=== PATIENT | male | born 1955 | race Caucasian/White ===

== ENCOUNTER 2021-08-21 08:06 | Emergency (ER) | payer MEDICARE ==
[~2021-08-21] VITALS: Ht 172 cm; Wt 77.1 kg
[2021-08-21] MEDS ORDERED: LIDOCAINE UROJET 2% GEL 10 ML PKG TOP ONE (08:15)
[2021-08-21] MEDS ORDERED: LIDOCAINE UROJET 2% GEL 10 ML PKG ONE (08:17)
[2021-08-21 08:41] LABS: BILIRUBIN,URINE NEGATIVE (NEGATIVE); CLARITY,URINE CLOUDY; COLOR,URINE YELLOW; GLUCOSE, URINE (UA) 2+ (NEGATIVE); KETONES,URINE NEGATIVE (NEGATIVE); LEUKOCYTE ESTERASE ,URINE NEGATIVE (NEGATIVE); NITRITE,URINE NEGATIVE (NEGATIVE); PROTEIN,URINE NEGATIVE (NEGATIVE)
[2021-08-21] MEDS ORDERED: TMSL.4C PO (08:46)
--- NOTE | 2021-08-21 08:49 | ED GU-Male ---
General Chief Complaint: - Reproductive Stated Complaint: UNABLE TO URINATE Nursing Triage Note: pt presents to ed via pov from home with complaitns of inabilty to urinate since last night. pt reprots he feels very distended and full and is having groin pain. Source: patient Exam Limitations: no limitations History of Present Illness Date Seen by Provider: Aug 21, 2021 Time Seen by Provider: 08:11 Initial Comments This 65-year-old gentleman presents to the emergency room with inability to urinate. He woke in the night multiple times attempting to urinate and with urge to urinate but was unable to. He has had some urinary hesitancy and weak stream in the past. He has taken supplements but has not taken any prescription medications for prostate disease. He is in distress from lower abdominal pain. Allergies and Home Medications Allergies Coded Allergies: Penicillins (Verified Allergy, Unknown, 08/21/21) Patient Home Medication List Home Medication List Reviewed: Yes Tamsulosin HCl (Flomax) 0.4 Mg Cap, 0.4 MG PO DAILY Prescribed by: ZEB LAUREANO on 08/21/21 0846 Review of Systems Review of Systems Constitutional: no symptoms reported EENTM: no symptoms reported Respiratory: no symptoms reported Cardiovascular: no symptoms reported Gastrointestinal: nausea Genitourinary: see HPI Musculoskeletal: no symptoms reported Skin: no symptoms reported Psychiatric/Neurological: No Symptoms Reported Endocrine: No Symptoms Reported Hematologic/Lymphatic: No Symptoms Reported Past Dkyydzy-Kionyi-Pjzody Hx Patient Social History Tobacco Use?: No Substance use?: Yes Substance type: Marijuana Alcohol Use?: Yes Alcohol Frequency: Rarely Pt feels they are or have been: No Immunizations Up To Date First/Initial COVID19 Vaccinat: yes Second COVID19 Vaccination Jamel: yes 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 oz. kg; 26.00 BMI Method: General Appearance: WD/WN, moderate distress HEENT: normal ENT inspection Neck: normal inspection Cardiovascular: regular rate, rhythm, no edema, no murmur Respiratory: lungs clear, normal breath sounds, no respiratory distress Gastrointestinal: distended, tenderness Male: normal genitalia Extremities: normal inspection, no pedal edema Neurologic/Psychiatric: no motor/sensory deficits, alert, normal mood/affect, oriented x 3 Skin: normal color, warm/dry Progress/Results/Core Measures Suspected Sepsis SIRS Temperature: Pulse: 81 Respiratory Rate: 18 Blood Pressure 193 /97 Mean: 129 Results/Orders Lab Results Laboratory Tests Test 08/21/21 08:27 Range/Units Urine Color YELLOW Urine Clarity CLOUDY Urine pH 7.0 5-9 Urine Specific [place] 1.015 L 1.016-1.022 Urine Protein NEGATIVE NEGATIVE Urine Glucose (UA) 2+ H NEGATIVE Urine Ketones NEGATIVE NEGATIVE Urine Nitrite NEGATIVE NEGATIVE Urine Bilirubin NEGATIVE NEGATIVE Urine Urobilinogen 0.2 < = 1.0 MG/DL Urine Leukocyte Esterase NEGATIVE NEGATIVE Urine RBC (Auto) 3+ H NEGATIVE Urine RBC 50-100 H /HPF Urine WBC RARE /HPF Urine Crystals NONE /LPF Urine Bacteria NEGATIVE /HPF Urine Casts NONE /LPF Urine Mucus NEGATIVE /LPF Urine Culture Indicated NO My Orders Orders - ZEB QUIROZ MD Ua Culture If Indicated (08/21/21 08:11) Lidocaine 2% (Urojet) (Xylocaine Urojet) (08/21/21 08:15) Lidocaine 2% (Urojet) (Xylocaine Urojet) (08/21/21 08:17) Medications Given in ED Vital Signs/I&O 08/21/21 08/21/21 08:29 09:14 Temp 36.5 Pulse 81 85 Resp 18 18 B/P (MAP) 193/97 (129) 174/87 Pulse Ox 98 98 Capillary Refill : Less Than 3 Seconds Blood Pressure Mean: 129 Progress Note : Progress Note Urojet was used for anesthetic and coud catheter was successfully placed yielding 700 mL of urine. Patient was prescribed Flomax and advised to see a u rologist as soon as possible. Leg bag was dispensed and Lopez catheter remained in place. Departure Impression Primary Impression: Urinary retention Disposition: 01 HOME, SELF-CARE Condition: Improved Departure-Patient Inst. Referrals: LUIS ANGEL CPOE DO (PCP) Primary Care Physician EDNA MARTINEZ MD Patient Instructions: Lopez Catheter, Urinary Retention Add. Discharge Instructions: Take Flomax daily as prescribed. Follow-up with Dr. Martinez or the urologist of your choice as soon as possible. See contact information below. Alternatively, you may follow-up with your primary care provider and seek a referral to a urologist. It is recommended that you leave the catheter in for about a week and have it removed in the clinical care setting at a follow-up appointment. If you are unable to get into a follow-up appointment within the next 7 to 10 days, return to the ER to have your catheter removed. Drink plenty of clear liquids. Empty your catheter bag frequently and try to keep the bag below the level of your bladder as much as possible. Call with questions or concerns. Return to the ER if you have any further problems or concerns. All discharge instructions reviewed with patient and/or family. Voiced un derstanding. Scripts Tamsulosin HCl (Flomax) 0.4 Mg Cap 0.4 MG PO DAILY, #30 CAP Prov: ZEB QUIROZ MD 08/21/21 ZEB QUIROZ MD Aug 21, 2021 08:49
[2021-08-21 08:53] LABS: BACTERIA,URINE NEGATIVE /HPF; RBC,URINE 50-100 /HPF; WBC,URINE RARE /HPF
[2021-08-21 09:14] VITALS: BP 174/87
== END 2021-08-21 09:11 | disposition home or self-care (01) ==
LOC: EDUNIT# 08:06 → ER 08:07
DX: R33.9 Retention of urine, unspecified (principal)
CPT/HCPCS: 51702; 81000

== ENCOUNTER 2022-02-01 07:46 | Emergency (ER) | payer MEDICARE ==
[~2022-02-01] VITALS: Ht 170.1 cm; Wt 72.5 kg
[~2022-02-01 07:46] MED LIST: TMSL.4C PO
[2022-02-01] MEDS ORDERED: LIDOCAINE UROJET 2% GEL 10 ML PKG TOP ONE (08:15)
--- NOTE | 2022-02-01 08:24 | ED GU-Female ---
General Chief Complaint: - Reproductive Stated Complaint: UNABLE TO URINATE Nursing Triage Note: PT AMB TO RM 6. PT STATED THAT HE STARTED HAVING URINARY PAIN THIS MORNING AND WAS NOT ABLE URINATE. Source: patient Exam Limitations: no limitations History of Present Illness Date Seen by Provider: Feb 01, 2022 Time Seen by Provider: 07:57 Initial Comments Here with report of acute onset of urinary retention. States that he has had this previously and had catheter placed in August. In-N-Out catheter done several weeks ago while he was on vacation and was doing better. He is on Flomax. States that he did take that as prescribed and was able to urinate overnight but woke up this morning and has not been able to urinate since. He has urology appointment tomorrow. He is requesting only in and out catheter and he states that that usually works well. Denies fever or chills. Denies blood in his urine. Does have a known history of prostate problems. Timing/Duration: this morning Severity/Quality: moderate Location: suprapubic Radiation: suprapubic Activities at Onset: none Modifying Factors: Improves With Urinating Associated Symptoms: No dysuria, No fever/chills, No lower back pain, No nausea/vomiting Allergies and Home Medications Allergies Coded Allergies: Penicillins (Verified Allergy, Unknown, 08/21/21) Patient Home Medication List Home Medication List Reviewed: Yes Tamsulosin HCl (Flomax) 0.4 Mg Cap, 0.4 MG PO DAILY Prescribed by: ZEB LAUREANO on 08/21/21 0846 Review of Systems Review of Systems Constitutional: see HPI; No chills, No fever Respiratory: no symptoms reported Cardiovascular: no symptoms reported Genitourinary: denies dysuria, denies flank pain Musculoskeletal: No back pain, No neck pain Past Vndsynq-Ewjkol-Efxjtn Hx Patient Social History Tobacco Use?: No Alcohol Use?: Yes Alcohol Frequency: Once in a while Immunizations Up To Date First/Initial COVID19 Vaccinat: yes Second COVID19 Vaccination Jamel: yes Past Medical History Surgery/Hospitalization HX: pmh: prostate issues Surgeries: No Respiratory: No Cardiac: No Neurological: No Genitourinary: Yes Prostate Problems Gastrointestinal: No Musculoskeletal: No Endocrine: No HEENT: No Cancer: No Psychosocial: No Family Medical History Reviewed Nursing Family Hx Physical Exam Vital Signs Vital Signs - First Documented 02/01/22 07:59 Pulse 72 Resp 20 B/P (MAP) 191/121 (144) Pulse Ox 99 O2 Delivery Room Air Capillary Refill : Less Than 3 Seconds Height, Weight, BMI Height: '" Weight: lbs. oz. kg; 25.00 BMI Method: General Appearance: WD/WN, no apparent distress Cardiovascular: regular rate, rhythm, no murmur Respiratory: lungs clear, normal breath sounds Gastrointestinal: soft, tenderness (Suprapubic with bladder distention noted) Back: normal inspection, no CVA tenderness, no vertebral tenderness Neurologic/Psychiatric: alert, oriented x 3 Skin: normal color, warm/dry Progress/Results/Core Measures Suspected Sepsis SIRS Temperature: Pulse: 72 Respiratory Rate: 20 Blood Pressure 191 /121 Mean: 144 Results/Orders Lab Results Laboratory Tests Test 02/01/22 08:15 Range/Units Urine Color YELLOW Urine Clarity CLEAR Urine pH 6.0 5-9 Urine Specific [place] 1.015 L 1.016-1.022 Urine Protein NEGATIVE NEGATIVE Urine Glucose (UA) TRACE H NEGATIVE Urine Ketones NEGATIVE NEGATIVE Urine Nitrite NEGATIVE NEGATIVE Urine Bilirubin NEGATIVE NEGATIVE Urine Urobilinogen 0.2 < = 1.0 MG/DL Urine Leukocyte Esterase NEGATIVE NEGATIVE Urine RBC (Auto) NEGATIVE NEGATIVE Urine RBC 0-2 /HPF Urine WBC NONE /HPF Urine Crystals NONE /LPF Urine Bacteria NEGATIVE /HPF Urine Casts NONE /LPF Urine Mucus NEGATIVE /LPF Urine Culture Indicated NO My Orders Orders - HEIDI CUNNINGHAM MD Straight Cath For Spec.-Adult (02/01/22 08:03) Ua Culture If Indicated (02/01/22 08:03) Lidocaine 2% (Urojet) (Xylocaine Urojet) (02/01/22 08:15) Medications Given in ED Current Medications Medications Dose Ordered Sig/Pedrito Route Start Time Stop Time Status Last Admin Dose Admin Lidocaine HCl 10 ml ONCE ONCE TOP 02/01/22 08:15 02/01/22 08:16 DC 02/01/22 08:08 10 ML Vital Signs/I&O 02/01/22 07:59 Pulse 72 Resp 20 B/P (MAP) 191/121 (144) Pulse Ox 99 O2 Delivery Room Air Capillary Refill : Less Than 3 Seconds Blood Pressure Mean: 144 Progress Note : Progress Note Seen and evaluated. Straight cath ordered. Urojet prior to placement. UA ordered. Blood pressure noted to be quite elevated on arrival and we will recheck after urinary drainage. 0827: UA sent. Urine drained and patient feeling much better. Blood pressure has improved as well. 700 mL of urine drained. Monitor patient. 0848: Much improved. Blood pressure remains improved. UA negative except for trace glucose. Patient has monitoring of himself and states his blood sugars have been 120s or less on his sporadic checks through the week. Discharged home with return precautions. Patient verbalized understanding instructions and agreement with plan. Departure Impression Primary Impression: Urinary retention Disposition: 01 HOME, SELF-CARE Condition: Improved Departure-Patient Inst. Decision time for Depature: 08:28 Referrals: LUIS ANGEL COPE DO (PCP/Family) Primary Care Physician Patient Instructions: Urinary Retention (DC) Add. Discharge Instructions: All discharge instructions reviewed with patient and/or family. Voiced understanding. Follow-up with your neurologist tomorrow as scheduled. Continue home medicat ions as previously prescribed. Return for worse pain, weakness, vomiting, fever or other concerns as needed. HEIDI CUNNINGHAM MD Feb 01, 2022 08:24
[2022-02-01 08:26] LABS: BILIRUBIN,URINE NEGATIVE (NEGATIVE); CLARITY,URINE CLEAR; COLOR,URINE YELLOW; GLUCOSE, URINE (UA) TRACE (NEGATIVE); KETONES,URINE NEGATIVE (NEGATIVE); LEUKOCYTE ESTERASE ,URINE NEGATIVE (NEGATIVE); NITRITE,URINE NEGATIVE (NEGATIVE); PROTEIN,URINE NEGATIVE (NEGATIVE)
[2022-02-01 08:33] LABS: BACTERIA,URINE NEGATIVE /HPF; RBC,URINE 0-2 /HPF
[2022-02-01 08:54] VITALS: BP 148/73
== END 2022-02-01 08:54 | disposition home or self-care (01) ==
LOC: EDUNIT# 07:46 → ER 07:48
DX: R33.9 Retention of urine, unspecified (principal); R03.0 Elevated blood-pressure reading, without diagnosis of hypertension; Z96.0 Presence of urogenital implants
CPT/HCPCS: 51701; 81000